=== PATIENT | male | born 1960 | race Caucasian/White ===

== ENCOUNTER 2024-09-17 17:11 | Emergency (ER) | payer MEDICARE, MEDICAID, SELFPAY ==
[2024-09-17] VITALS (11 sets, daily range): BP systolic 159–247; BP diastolic 96–156; PULSE 79–98; RESP 18–20; TEMP 36.6–37.2; O2SAT 94–98; BMI 33.9
--- NOTE | 2024-09-17 17:24 | EKG_ITS ---
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
--- NOTE | 2024-09-17 17:24 | PC.NURSE ---
PT CAME IN WITH C/O ABD PAIN SINCE LAST NIGHT. PT ALSO NOTED TO HAVE HIGH BP. PER PT HE DID NOT TAKE HIS MEDICATIONS TODAY OR LAST NIGHT DUE TO HIS ABD PAIN. PT DENIES CONSTIPATION. NO FEVER NOTE. PT PLACED ON CC MONITOR
--- NOTE | 2024-09-17 17:40 | EDNOTE_ITS ---
ED Abdominal Pain RME/HPI General Chief Complaint: Abdominal Pain Stated complaint: ABDOMINAL PAIN Time seen by provider: 09/17/24 17:29 Arrival date/time: 09/17/24 17:11 RME / HPI RME / HPI narrative: 64-year-old male patient with significant history of hypertension, came in for evaluation regarding epigastric pain. Onset of symptoms since yesterday as epigastric pain, described as crampy, severity moderate. Denies any vomiting but complain of nausea. Denies any fever. Patient told me that for the last 24 hours he did not take his blood pressure medication due to nausea and abdominal pain. Denies any chest pain. Denies any other complaints no diarrhea no constipation last bowel movement today. Patient admits to using meth amphetamine on a regular basis, minimal twice a week according to him. But last dose was yesterday. Related Data Previous Rx's ?Medication ?Instructions ?Recorded albuterol sulfate 90 mcg/actuation 2 inh inhalation Q6 H PRN shortness 03/22/24 breath activated powder inhaler of breath or wheezing #1 ea carvedilol 6.25 mg tablet 6.25 mg PO BID #60 tabs 03/06 01/26 dapagliflozin propanediol 10 mg 10 mg PO QDAY #30 tabs 03/22/24 tablet (Farxiga) guaifenesin 1,200 mg tablet, 1,200 mg PO BID #6 tabs 0 03/22/24 extended release 12 hr (Mucus Relief ER) methylprednisolone 4 mg tablets in 4 mg PO QAM #21 tab s 03/22/24 a dose pack (Medrol (Scott)) dicyclomine 20 mg tablet 20 mg PO BID PRN abdominal p ain 09/17/24 #20 tabs metoclopramide HCl 10 mg tablet 10 mg PO Q6H PRN nause a and 09/17/24 (Reglan) vomiting #20 tabs pantoprazole 40 mg tablet,delayed 40 mg PO QDAY #20 ta bs 09/17/24 release (Protonix) Allergies Allergy/AdvReac Type Severity Reaction Status Date / Time No Known Allergies Allergy Verified 12/24/23 18:32 Review of Systems Review of Systems Narrative Review of Systems: Review of system reviewed and within normal limits except mentioned in HPI ED Exam Narrative Physical exam: VITAL SIGNS: Reviewed. GENERAL APPEARANCE: Alert and interactive, follows commands, no acute distress, HEAD AND FACE: Non-traumatic. ENT: PERRL, pink conjunctivitis, eyelid no trauma, Mucous membrane moist. NECK: Supple, nontender, no nuchal rigidity. CHEST: No tenderness, no crepitus, no paradoxical movement, no retractions. LUNGS: Clear, well ventilated, symmetric, no rales, no wheezing, no ronchi, no stridor, good breath sounds bilaterally. HEART: Regular rate, regular rhythm, no murmur, no gallops. ABDOMEN: Soft, positive bowel sounds, nondistended, no guarding, , epigastric tenderness GENITAL: Deferred. NEUROLOGICAL: Gross motor function intact sensory function intact, Appropriate for age. MUSCULOSKELETAL: low back nontender, full range of motion. EXTREMITIES: Nontender, full range of motion. SKIN: Color pink, dry, no rash, no lacerations, no abrasions, no contusions. LYMPHATICS: Deferred. Course Quality Measures none Orders Category Date Time Status EKG (ED ONLY) *Do not use* NOW Care 09/17/24 17:24 Completed EKG (ED ONLY) *Do not use* NOW Care 09/17/24 17:46 Completed Insert IV NOW Care 09/17/24 17:24 Active EKG (ED Only) Stat Exams 09/17/24 17:24 Draft EKG (ED Only) Stat Exams 09/17/24 17:46 Ordered US gall bladder Stat Exams 09/17/24 17:46 Completed CBC Stat Lab 09/17/24 17:25 Completed Comprehensive Metabolic Panel Stat Lab 09/17/24 17:25 Completed Drug Screen,Urine Stat Lab 09/17/24 20:47 Ordered Lipase Stat Lab 09/17/24 17:25 Completed Partial Thromboplastin Time Stat Lab 09/17/24 17:25 Completed Prothrombin Time with INR Stat Lab 09/17/24 17:25 Completed Troponin I Stat Lab 09/17/24 17:25 Completed Troponin I Stat Lab 09/17/24 22:06 Completed UA, C/S IF [Urinalysis, C/S if Indicated] Stat Lab 09/17/24 20:00 Completed Ketorolac Inj [Toradol Inj] Med 09/17/24 17:46 Discontinued 30 mg IVP X1 ONE Metoclopramide Inj [Reglan Inj] Med 09/17/24 17:46 Discontinued 10 mg IVP X1 ONE cloNIDine HCL [Catapres] Med 09/17/24 17:46 Discontinued 0.2 mg PO X1 ONE Vital Signs Vital signs: Vital Signs Temperature 98.3 F 09/17/24 17:22 Pulse Rate 79 09/17/24 17:22 Respiratory Rate 18 09/17/24 17:22 Blood Pressure 247/156 H 09/17/24 17:22 Pulse Oximetry (%) 96 09/17/24 17:22 Oxygen Delivery Method Room Air 09/17/24 17:22 Abdominal Pain [facility] Narrative [facility] Narrative:: 64-year-old male patient with significant history of hypertension, came in for evaluation regarding epigastric pain. Onset of symptoms since yesterday as epigastric pain, described as crampy, severity moderate. Denies any vomiting but complain of nausea. Denies any fever. Patient told me that for the last 24 hours he did not take his blood pressure medication due to nausea and abdominal pain. Denies any chest pain. Denies any other complaints no diarrhea no constipation last bowel movement today. Patient admits to using meth amphetamine on a regular basis, minimal twice a week according to him. But last dose was yesterday. EKG as interpreted by me shows sinus rhythm, ventricular rate of 92 bpm, no ST segment elevation depression noted. Patient's troponin was noted initially at 0.8, after 3 hours went down to 0.7. Patient is also having elevated troponin in the past. Patient is denying any chest pain. Probably related to the methamphetamine abuse. Ultrasound of the gallbladder, came back unremarkable. The rest of the labs unremarkable Patient was given clonidine and Toradol IV. Patient was also given Reglan. Prior to discharge patient was eating sandwich in the ED and having no pain. Was advised to stop abusing methamphetamine. Patient data External records reviewed:: None Clinical information provided by:: patient Social determinants that could affect healthcare access:: substance use Patient has the following chronic illnesses:: Hypertension How is presenting disease/condition affected by chronic disease/condition?: exacerbated by Evaluation data The following diagnostics were reviewed and interpreted by me:: lab results, radiology exam(s) and EKG tracing(s) Lab and/or radiology exams considered but not ordered:: None Interpretation Summary: See results in MDM Medications / Prescriptions Medications or Prescriptions considered but not ordered:: None Medication administrations:: Medication Administration History Discontinued Medications Clonidine (Clonidine Hcl 0.1 Mg Tablet) 0.2 mg PO X1 ONE Stop: 09/17/24 17:47 Last Admin: 09/17/24 17:59 Dose: 0.2 mg Documented By: DO Ketorolac Tromethamine (Ketorolac Inj 30 Mg/Ml Vial) 30 mg IVP X1 ONE Stop: 09/17/24 17:47 Last Admin: 09/17/24 17:58 Dose: 30 mg Documented By: DO Metoclopramide HCl (Metoclopramide Inj 5 Mg/Ml Vial 2 Ml) 10 mg IVP X1 ONE; Protocol Stop: 09/17/24 17:47 Last Admin: 09/17/24 17:58 Dose: 10 mg Documented By: DO Reglan, Toradol and clonidine Consultations Consultation(s) initiated? (list below): No Diagnosis Differential diagnosis abdominal pain: abdominal pain, constipation, pancreatitis and other (Elevated troponin, methamphetamine abuse) Most likely diagnosis given after review of the tests above:: Abdominal pain Admission Indicated Admission indicated?: not indicated Admission Request Was there a request for admission?: No Disposition Plan Disposition Plan: Discharge Discharge Attestation Discharge Attestation: The patient was given an opportunity to ask questions and understood the discharge instructions. Discharge instructions specifically effects, indications for sooner follow up or return to the emergency department, and the expected course of current diagnosis. Patient condition: Stable Discharge Plan Plan Patient Disposition: HOME (Self Care) Disposition Comment: Stable Prescriptions/Referrals Prescriptions/Med Rec: New pantoprazole [Protonix] 40 mg tablet,delayed release (DR/EC) 40 mg PO QDAY Qty: 20 0RF dicyclomine 20 mg tablet 20 mg PO BID PRN (Reason: abdominal pain) Qty: 20 0RF metoclopramide HCl [Reglan] 10 mg tablet 10 mg PO Q6H PRN (Reason: nausea and vomiting) Qty: 20 0RF No Action guaifenesin [Mucus Relief ER] 1,200 mg tablet extended release 12hr 1,200 mg PO BID Qty: 6 0RF methylprednisolone [Medrol (Scott)] 4 mg tablets,dose pack 4 mg PO QAM Qty: 21 0RF albuterol sulfate 90 mcg/actuation aerosol powdr breath activated 2 inh inhalation Q6H PRN (Reason: shortness of breath or wheezing) Qty: 1 0RF carvedilol 6.25 mg tablet 6.25 mg PO BID Qty: 60 0RF Rx Instructions: must administer with a meal/food dapagliflozin propanediol [Farxiga] 10 mg tablet 10 mg PO QDAY Qty: 30 0RF Referrals: Sagar Melgoza MD [Primary Care Provider] - In 1 week Problem List Clinical Impression: Abdominal pain Patient/Caregiver Discharge Instructions Discharge Activity: activity as tolerated Education Materials: Abdominal Pain Additional Instructions: Thank you for the opportunity for serving you today. You are stable for discharged . You are advised to: Follow-up with your PCP in 1 to 2 days Return to ED for worsening of symptoms Increase oral fluids Take medication as prescribed Please stop abusing meth Print Language: Luxembourgish Stand Alone Forms: Tierney Award Info., Patient Portal Info Letter PA/PROCUREMENT CLERK Supervising Physician CHHAYA/LEONOR Supervising Physician: MD Mike
--- NOTE | 2024-09-17 17:46 | XR_ITS ---
Examination: Abdomen sonogram, Limited Date and time of exam: September 20, 2024 1854 hrs. Indications: Epigastric pain beginning 2 days ago Technique: Real-time reed scale transabdominal sonographic images of the upper abdomen obtained. Findings: Negative for gallstones Gallbladder wall 0.35 cm no edema Common bile duct 0.4 cm Pancreatic head 3.4 cm borders are ill-defined Liver 12.3 cm Normal hepatopedal portal venous flow Patent IVC Impression: Negative for cholelithiasis, negative for cholecystitis If pancreatitis is a clinical consideration, suggest CT abdomen pelvis post intravenous contrast follow-up
[2024-09-17] MEDS: METOCLOPRAMIDE INJ 5 MG/ML VIAL 2 ML 10 MG IVP (17:58)
[2024-09-17] MEDS: KETOROLAC INJ 30 MG/ML VIAL IVP (17:58)
[2024-09-17] MEDS: cloNIDine HCL 0.1 MG TABLET 0.2 MG PO (17:59)
[2024-09-17 18:20] LABS: Basophils # (Auto) 0.1 Thou/mm3 (0.0-0.2); Basophils % (Auto) 0 % (0-2.5); Eosinophils # (Auto) 0.1 Thou/mm3 (0.0-0.5); Eosinophils % (Auto) 1 % (0-10); Hematocrit 52.7 % (41.0-53.0); Hemoglobin 18.2 g/dL (13.5-16.0); Immature Granulocytes % (Auto) 0 % (0-0); Immature Granulocytes Auto 0.03 Thou/mm3 (0.00-0.00); Lymphocytes # (Auto) 1.8 Thou/mm3 (1.0-4.8); Lymphocytes % (Auto) 16 % (10-50); Mean Corpuscular HGB Conc 34.5 g/dl (31.0-37.0); Mean Corpuscular Hemoglobin 30.8 pg (25.0-35.0); Mean Corpuscular Volume 89 fL (80-100); Monocytes # (Auto) 0.9 Thou/mm3 (0.0-0.8); Monocytes % (Auto) 7 % (0-12); Neutrophils # (Auto) 8.7 Thou/mm3 (1.8-7.7); Neutrophils % (Auto) 75 % (37-80); Nucleated Red Blood Cell % 0 /100 WBC (0); Platelet Count 160 Thou/mm3 (140-440); RDW Standard Deviation 38.6 fL (35.1-43.9); Red Blood Count 5.91 Miln/mm3 (4.50-5.90); White Blood Count 11.6 Thou/mm3 (3.8-10.6)
[2024-09-17 18:32] LABS: Partial Thromboplastin Time 29.9 Seconds (22.0-36.0); Prothrombin Time 11.3 Seconds (9.0-12.2)
[2024-09-17 18:39] LABS: Alanine Aminotransferase 26 U/L (10-49); Albumin, Serum 5.3 gm/dL (3.4-4.8); Albumin/Globulin Ratio 1.2 (1.2-2.2); Alkaline Phosphatase 136 U/L (46-116); Anion Gap 10 (7-16); Aspartate Amino Transferase 34 U/L (0-34); BUN/Creatinine Ratio 11 Ratio (12-20); Blood Urea Nitrogen 13 mg/dL (9-23); Calcium 10.5 mg/dL (8.3-10.6); Calcium (Corrected) 10.5 mg/dL (8.5-10.1); Carbon Dioxide 27.6 mMol/L (20.0-31.0); Chloride 98 mMol/L (98-107); Creatinine (Component) 1.2 mg/dL (0.6-1.3); Estimated Creatinine Clearance 66.3 mL/min (>60); Globulin 4.3 gm/dL (2.3-3.5); Glucose 115 mg/dL (74-106); Lipase 34 U/L (12-53); Osmolality,Calculated 273 (275-295); Potassium 3.8 mMol/L (3.4-5.1); Sodium 136 mMol/L (136-145); Total Protein 9.6 gm/dL (5.7-8.2); eGFR > 60 See Note
--- NOTE | 2024-09-17 19:49 | PC.NURSE ---
Family called given update. Niece mentioned that he had c/p last nite. Lucas INTERACTIVE PRODUCER informed, will add Trop level.
[2024-09-17 19:53] LABS: Collection Type, Urine Clean Catch
[2024-09-17 20:18] LABS: Bilirubin,Urine Negative (Negative); Blood,Urine Negative (Negative); Clarity,Urine Clear (Clear/Hazy); Color,Urine Lt-Yellow (Lt Yel-Yel); Culture Indicated,Urine Not Indicated; Glucose, Urine Trace (Negative); Ketones,Urine Trace (Negative); Leukocyte Esterase,Urine Negative (Negative); Nitrite,Urine Negative (Negative); PH,Urine 6.5 (5.0-7.0); Protein,Urine 1+ (Neg - Trace); RBC,Urine 2 /hpf (0-3); Specific Gravity,Urine 1.011 (1.001-1.035); Squamous Epithelial Cell,Urine 1 /hpf (0-5); Urobilinogen,Urine Negative mg/dL (0.0-1.0); WBC,Urine < 1 /hpf (0-5)
[2024-09-17 20:25] LABS: Troponin I 0.869 ng/mL (0.0-0.045)
--- NOTE | 2024-09-17 21:01 | PRELIM_ITS ---
Right upper quadrant abdominal ultrasound. September 17, 2024 at 1854 hours Clinical history: Epigastric pain. Technique: Grayscale and color flow images of the right upper quadrant are provided. Hepatic and portal veins were also imaged with color flow images. Comparison: No prior study is available for comparison. Findings: The evaluation is limited due to overlying bowel gas and body habitus. The liver measures 12.3 cm and is mildly heterogeneous in echotexture. The left lobe of the liver is limited by bowel gas artifact. No intrahepatic biliary ductal dilatation. The portal vein is patent and demonstrates hepatopetal flow. The gallbladder wall appears mildly thickened measuring 3.5 mm. No gallbladder calculus or pericholecystic fluid is demonstrated. Sonographic Gore sign is negative as per the technologist's note. The common bile duct is normal in caliber at 3.5 mm. The pancreas is hyperechoic with ill-defined pancreatic borders. Impression: Limited evaluation as described. 1. Mildly thickened gallbladder wall without evidence of gallstones or pericholecystic fluid. In the appropriate clinical setting, acute acalculous cholecystitis cannot be excluded. Suggest follow-up with HIDA scan, if clinically indicated. 2. Mildly heterogeneous echotexture of liver, likely related to hepatic parenchymal disease. 3. Hyperechoic pancreas with ill-defined pancreatic borders, nonspecific but acute pancreatitis cannot be excluded appropriately rectal settings. Recommend clinical correlation with lipase and further evaluation with CT. 4. No evidence of biliary obstruction. Report Electronically Signed By: Luis Manuel Lin 09/17/2024 9:01:28 PM [EST]
[2024-09-17 22:42] LABS: Troponin I 0.702 ng/mL (0.0-0.045)
== END 2024-09-17 23:53 | disposition home or self-care (01) ==
PROVIDERS: Nurse Practitioner Family; Emergency Provider Emergency Medicine; PCP Family Medicine
DX: R10.13 Epigastric pain (principal); T46.5X6A Underdosing of other antihypertensive drugs, initial encounter; I10 Essential (primary) hypertension
CPT/HCPCS: 36415; 76705; 80053; 80307; 81001; 83690; 84484; 85025; 85610; 85730; 93005; 96374; 96375; 99284; J1885; J2765; A9270

== ENCOUNTER 2025-04-19 15:22 | Emergency (ER) | payer MEDICARE, MEDICAID, SELFPAY ==
[2025-04-19 15:30] VITALS: PULSE 86; RESP 16; O2SAT 98
[2025-04-19 15:56] VITALS: BP 189/120; BP 206/111; PULSE 65; RESP 20; TEMP 36.6; O2SAT 99
--- NOTE | 2025-04-19 16:04 | XR_ITS ---
EXAMINATION: CT abdomen pelvis without intravenous contrast 2D sagittal coronal reconstructions 3D reconstructions Date and time: April 19, 2025, 1615 hours INDICATIONS: Right inguinal pain groin pain onset today. CTDI: 9.09 DLP: 578 TECHNIQUE AND FINDINGS: 3.[address] axial images obtained abdomen pelvis 2D sagittal coronal reconstructions 3D reconstructions Low-dose protocols, adjustment MA KV according to patient size FINDINGS: 18 mm nodule lobular margins right lower lobe No visualized liver or splenic lesion No gallstones No pancreatic or adrenal mass No renal or ureteral calculi, no hydronephrosis Aorta normal size No bowel obstruction Normal appendix No prostatomegaly Urinary bladder intact Tiny fat-containing right inguinal hernia Moderate osteopenia IMPRESSION: 18 mm pulmonary nodule right lower lobe, please see the CT chest report 03/21/2024 No renal or ureteral calculi, no hydronephrosis Normal appendix No prostatomegaly Tiny fat-containing right inguinal hernia
--- NOTE | 2025-04-19 16:06 | PD.EDRME ---
Rapid Medical Screening Exam RME Arrival date/time: 04/19/25 15:22 64-year-old male presents to the emergency department today for complaints of abdominal pain and right inguinal pain Chief Complaint: Abdominal Pain Vital signs: Vital Signs Temperature 97.8 F 04/19/25 15:56 Pulse Rate 65 04/19/25 15:56 Respiratory Rate 20 04/19/25 15:56 Blood Pressure 206/111 H 04/19/25 15:56 Pulse Oximetry (%) 99 04/19/25 15:56 Oxygen Delivery Method Room Air 04/19/25 15:56
[2025-04-19 16:16] VITALS: BP 206/111; PULSE 65
[2025-04-19] MEDS: HYDROcodone/APAP 5/325 TABLET 1 TAB PO (16:16)
--- NOTE | 2025-04-19 16:18 | EDNOTE_ITS ---
ED General RME/HPI General Chief complaint: Abdominal Pain Stated complaint: RLQ ABD PAIN Time Seen by Provider: 04/19/25 16:18 Arrival date/time: 04/19/25 15:22 RME / HPI RME / HPI narrative: Mayank is a 64 y/o male with PMHx hypertension, psoriasis, active smoker and substance abuse (meth) who comes in for evaluation of RLQ pain, radiates to the flank and lower back, onset about a month ago, improved with OTC tylenol, rated 8/10 pain, with associated nausea. Patient reports that he has had similar symptoms to these before. He says that he was recently in with [facility] and he was worked up for similar, pain, however they did not find anything and he was discharged. He says that his temperature has been running around 97 Fahrenheit. Denies any chest pain, shortness of breath, numbness, tingling, headache. He does not have a compliance representative at this time. He has a PCP, however does not know who it is. He says he currently smokes about 10 cigarettes a day. He has never had an endoscopy or colonoscopy before. Endorses about 8 pounds of weight loss in the past 2 months. He denies any blood in his stool, coughing up blood, or throwing up blood. He says that he rarely drinks. He avoids using ibuprofen, and only uses Tylenol. He has no history of kidney stones, however family history of kidney stones. Denies a history of BPH, however endorses some burning when he pees. Has bowel movements reguarly, last one was yesterday. He has no other complaints at this time. Related Data Previous Rx's ?Medication ?Instructions ?Recorded albuterol sulfate 90 mcg/actuation 2 inh inhalation Q6 H PRN shortness 03/22/24 breath activated powder inhaler of breath or wheezing #1 ea carvedilol 6.25 mg tablet 6.25 mg PO BID #60 tabs 03/06 01/26 dapagliflozin propanediol 10 mg 10 mg PO QDAY #30 tabs 03/22/24 tablet (Farxiga) guaifenesin 1,200 mg tablet, 1,200 mg PO BID #6 tabs 0 03/22/24 extended release 12 hr (Mucus Relief ER) methylprednisolone 4 mg tablets in 4 mg PO QAM #21 tab s 03/22/24 a dose pack (Medrol (Scott)) dicyclomine 20 mg tablet 20 mg PO BID PRN abdominal p ain 09/17/24 #20 tabs metoclopramide HCl 10 mg tablet 10 mg PO Q6H PRN nause a and 09/17/24 (Reglan) vomiting #20 tabs pantoprazole 40 mg tablet,delayed 40 mg PO QDAY #20 ta bs 09/17/24 release (Protonix) pantoprazole 40 mg tablet,delayed 40 mg PO QDAY 2 week s #14 tabs 04/19/25 release (Protonix) Allergies Allergy/AdvReac Type Severity Reaction Status Date / Time No Known Allergies Allergy Verified 04/19/25 15:33 Review of Systems Review of Systems Narrative Review of Systems: 12 point ROS reviewed and is otherwise negative unless stated directly in the HPI ED Exam Narrative Physical exam: General: AAOx3, NAD, in wheel chair, has tattoos HEENT: Moist mucous membranes, conjunctiva clear, EOMI, PERRLA, Cardiovascular: S1, S2, radial pulses +2 bilat, RRR Pulmonary: CTAB bilat no cough, no wheezing GI: A bit distended, hypoactive bowel sounds, slight tenderness to RLQ : No CVA tenderness Extremities: No presence of trace or pitting edema in lower extremities bilaterally, dorsalis pedis pulses +2 bilaterally Neuro: AAOx3, no focal motor or sensory deficits in the UE or LE bilat Psych: Good judgement, thought and behavior Course Quality Measures none Orders Category Date Time Status Miscellaneous Nursing Order NOW Care 04/19/25 17:[address] abdomen pelvis wo con Stat Exams 04/19/25 16:04 Completed US gall bladder Stat Exams 04/19/25 17:11 Taken CBC Stat Lab 04/19/25 16:24 Completed Comprehensive Metabolic Panel Stat Lab 04/19/25 16:24 Completed Lipase Stat Lab 04/19/25 16:24 Completed UA, C/S IF [Urinalysis, C/S if Indicated] Stat Lab 04/19/25 16:04 Ordered HYDROcodone*/APAP 5/325 [[place] 5/325] Med 04/19/25 16:04 Discontinued 1 tab PO X1 ONE Lidocaine 2% Viscous [Xylocaine 2% Viscous] Med 04/19/25 17:12 Discontinued 15 ml PO X1 ONE Ondansetron Odt [Zofran Odt] Med 04/19/25 17:17 Discontinued 4 mg PO X1 ONE Pantoprazole [Protonix] Med 04/19/25 17:12 Discontinued 40 mg PO X1 ONE cloNIDine HCL [Catapres] Med 04/19/25 16:04 Discontinued 0.1 mg PO X1 ONE mg Hyd/Al Hyd/Sherman Susp [Maalox Susp] Med 04/19/25 17:12 Discontinued 30 ml PO X1 ONE Vital Signs Vital signs: Vital Signs Temperature 97.8 F 04/19/25 15:56 Pulse Rate 65 04/19/25 15:56 Respiratory Rate 20 04/19/25 15:56 Blood Pressure 206/111 H 04/19/25 15:56 Pulse Oximetry (%) 99 04/19/25 15:56 Oxygen Delivery Method Room Air 04/19/25 15:56 Discharge Plan Plan Patient Disposition: HOME (Self Care) Prescriptions/Referrals Prescriptions/Med Rec: New pantoprazole [Protonix] 40 mg tablet,delayed release (DR/EC) 40 mg PO QDAY 14 Days Qty: 14 0RF Rx Instructions: Take one tablet by mouth before breakfast No Action pantoprazole [Protonix] 40 mg tablet,delayed release (DR/EC) 40 mg PO QDAY Qty: 20 0RF dicyclomine 20 mg tablet 20 mg PO BID PRN (Reason: abdominal pain) Qty: 20 0RF metoclopramide HCl [Reglan] 10 mg tablet 10 mg PO Q6H PRN (Reason: nausea and vomiting) Qty: 20 0RF guaifenesin [Mucus Relief ER] 1,200 mg tablet extended release 12hr 1,200 mg PO BID Qty: 6 0RF methylprednisolone [Medrol (Scott)] 4 mg tablets,dose pack 4 mg PO QAM Qty: 21 0RF albuterol sulfate 90 mcg/actuation aerosol powdr breath activated 2 inh inhalation Q6H PRN (Reason: shortness of breath or wheezing) Qty: 1 0RF carvedilol 6.25 mg tablet 6.25 mg PO BID Qty: 60 0RF Rx Instructions: must administer with a meal/food dapagliflozin propanediol [Farxiga] 10 mg tablet 10 mg PO QDAY Qty: 30 0RF Referrals: No Primary/Family,Physician [Primary Care Provider] - In 1 week Problem List Clinical Impression: Gastritis Patient/Caregiver Discharge Instructions Discharge Activity: activity as tolerated Education Materials: ED Gastritis (Adult) Additional Instructions: Discharge instructions Follow-up with your PCP within 1 week We are prescribing Protonix, take as prescribed Avoid smoking at all costs as this can be a culprit of your abdominal pain We did not see inflammation in your appendix, gallbladder or any kidney stones, your pain is likely related to long standing gastritis. Speak with your PCP in regards to this and consider being referred to a Stomach and Liver doctor (GI doctor) Return to ED if your symptoms worsen or return Print Language: Citizen Of [place] Stand Alone Forms: Tierney Award Info., Patient Portal Info Letter MDM Narrative MDM hospital course (for use when minimal MDM required): 1722: CT abd/pelvis shows no renal calculi, normal appendix, normal prostate. Will give patient GI cocktail and order US gallbladder as there was previous sludge in previous US and there was some tenderness in RUQ. Pt was given clonidine earlier for SBP 200s. 1800: Gallbladder US report notes say no sludge in gallbladder or stones. Pt medically cleared for discharge. Pt needs to follow up with PCP in regards to abdominal pain including gastritis. Medication Administration(s) Medication Administration History Discontinued Medications Hydrocodone Bitart/Acetaminophen (Hydrocodone/Apap 5/325 Tablet) 1 tab PO X1 ONE Stop: 04/19/25 16:05 Last Admin: 04/19/25 16:16 Dose: 1 tab Documented By: EF Al Hydrox/Mg Hydrox/Simethicone (Mg Hyd/Al Hyd/Sherman (Maalox Reg) Susp 30 Ml Udc) 30 ml PO X1 ONE Stop: 04/19/25 17:13 Clonidine (Clonidine Hcl 0.1 Mg Tablet) 0.1 mg PO X1 ONE Stop: 04/19/25 16:05 Last Admin: 04/19/25 16:16 Dose: 0.1 mg Documented By: EF Lidocaine HCl (Lidocaine Viscous 2% 15 Ml Udc) 15 ml PO X1 ONE Stop: 04/19/25 17:13 Ondansetron HCl (Ondansetron Odt 4 Mg Tabrap) 4 mg PO X1 ONE; Protocol Stop: 04/19/25 17:18 Pantoprazole Sodium (Pantoprazole 40 Mg Tablet) 40 mg PO X1 ONE Stop: 04/19/25 17:13
[2025-04-19 16:34] LABS: Basophils # (Auto) 0.1 Thou/mm3 (0.0-0.2); Basophils % (Auto) 1 % (0-2.5); Eosinophils # (Auto) 0.4 Thou/mm3 (0.0-0.5); Eosinophils % (Auto) 4 % (0-10); Hematocrit 44.0 % (41.0-53.0); Hemoglobin 15.2 g/dL (13.5-16.0); Immature Granulocytes Auto 0.03 Thou/mm3 (0.00-0.00); Lymphocytes # (Auto) 2.4 Thou/mm3 (1.0-4.8); Lymphocytes % (Auto) 28 % (10-50); Mean Corpuscular HGB Conc 34.5 g/dl (31.0-37.0); Mean Corpuscular Hemoglobin 31.3 pg (25.0-35.0); Mean Corpuscular Volume 91 fL (80-100); Monocytes # (Auto) 0.7 Thou/mm3 (0.0-0.8); Monocytes % (Auto) 8 % (0-12); Neutrophils # (Auto) 5.1 Thou/mm3 (1.8-7.7); Neutrophils % (Auto) 59 % (37-80); Nucleated Red Blood Cell # 0.00 Thou/mm3 (0.00-0.00); Nucleated Red Blood Cell % 0 /100 WBC (0); Platelet Count 222 Thou/mm3 (140-440); RDW Standard Deviation 39.5 fL (35.1-43.9); Red Blood Count 4.86 Miln/mm3 (4.50-5.90); White Blood Count 8.7 Thou/mm3 (3.8-10.6)
[2025-04-19 16:59] LABS: Alanine Aminotransferase 16 U/L (10-49); Albumin, Serum 4.4 gm/dL (3.4-4.8); Albumin/Globulin Ratio 1.5 (1.2-2.2); Alkaline Phosphatase 127 U/L (46-116); Anion Gap 9 (7-16); Aspartate Amino Transferase 24 U/L (0-34); BUN/Creatinine Ratio 10 Ratio (12-20); Bilirubin,Total 0.7 mg/dL (0.3-1.2); Blood Urea Nitrogen 12 mg/dL (9-23); Calcium 9.2 mg/dL (8.3-10.6); Calcium (Corrected) 9.2 mg/dL (8.5-10.1); Carbon Dioxide 27.0 mMol/L (20.0-31.0); Chloride 103 mMol/L (98-107); Creatinine (Component) 1.2 mg/dL (0.6-1.3); Globulin 3.0 gm/dL (2.3-3.5); Glucose 113 mg/dL (74-106); Lipase 24 U/L (12-53); Osmolality,Calculated 278 (275-295); Potassium 4.0 mMol/L (3.4-5.1); Sodium 139 mMol/L (136-145); Total Protein 7.4 gm/dL (5.7-8.2); eGFR > 60 See Note
--- NOTE | 2025-04-19 17:11 | XR_ITS ---
EXAMINATION: Abdomen sonogram limited TECHNIQUE: Grayscale sonographic images abdomen Date and time: April 19, 2025, 1727 hours INDICATIONS: Right upper abdominal pain onset today. FINDINGS: Normal gallbladder. Normal common bile duct 0.4 cm Pancreatic at 3.0 cm Liver 10.3 cm fatty infiltration Normal hepatopetal portal venous flow Patent IVC IMPRESSION: Normal gallbladder Normal common bile duct
[2025-04-19 18:09] VITALS: BP 216/120; PULSE 77; RESP 18; TEMP 36.7; O2SAT 96
[2025-04-19 18:24] VITALS: BP 216/120; PULSE 77
[2025-04-19] MEDS: MG HYD/AL HYD/SIME (Maalox Reg) SUSP 30 ML UDC PO (18:24)
[2025-04-19] MEDS: ONDANSETRON ODT 4 MG TABRAP PO (18:24)
[2025-04-19] MEDS: PANTOPRAZOLE 40 MG TABLET PO (18:24)
[2025-04-19] MEDS: LIDOCAINE VISCOUS 2% 15 ML UDC PO (18:24)
[2025-04-19 18:34] VITALS: BP 174/105; PULSE 71; RESP 18; O2SAT 98
== END 2025-04-19 18:35 | disposition home or self-care (01) ==
PROVIDERS: Nurse Practitioner Primary Care
DX: K29.70 Gastritis, unspecified, without bleeding (principal); F17.210 Nicotine dependence, cigarettes, uncomplicated; I10 Essential (primary) hypertension; Z79.52 Long term (current) use of systemic steroids
CPT/HCPCS: 36415; 74176; 76705; 80053; 81001; 83690; 85025; 99283; J3490; Q0162; A9270

== ENCOUNTER 2025-04-24 10:58 | Emergency (ER) | payer MEDICARE, MEDICAID, SELFPAY ==
--- NOTE | 2025-04-24 11:38 | EKG_ITS ---
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
--- NOTE | 2025-04-24 11:38 | XR_ITS ---
EXAMINATION: PA chest single view TECHNIQUE: 1. Upright PA chest single view Date and time: April 24, 2025, 1142 hours, comparison March 20, 2024 INDICATIONS: History pulmonary nodule FINDINGS: Stable 28 mm pulmonary nodule right lower lung zone compared with 03/20/2024 Normal heart size No interval pneumonia or pulmonary edema IMPRESSION: Consider repeat CT chest follow-up to compare with the 03/21/2024 exam
--- NOTE | 2025-04-24 11:38 | XR_ITS ---
Examination: CT abdomen with intravenous contrast CT pelvis with intravenous contrast 2-D coronal reconstructions 2-D sagittal reconstructions Date and time of exam: April 24, 2025, 1427 hours INDICATIONS: Right side abdominal pain beginning 3 days ago COMPARISON: April 19, 2025. CTDI: vol (mGy) 9.09 DLP: (mGycm) 541 Technique: Multiple axial sections of the abdomen and pelvis have been obtained. 64 slice high-resolution scanner used. 3 mm axial sections have been obtained, post intravenous injection of 30 cc Isovue-300 2-D sagittal, coronal reconstructions obtained. Low dose protocols were performed. One or more of the following dose reduction techniques were used; automated exposure control, adjustment of the mA and/or KV according to patient size, use of iterative reconstruction technique. Findings: No focal liver or splenic lesions No gallstones No pancreatic or adrenal mass No renal or ureteral calculi, no hydronephrosis Aorta is calcified but normal in size Normal appendix Colonic diverticulosis, no diverticulitis Urinary bladder wall is thickened up to 10 mm Transverse prostate dimension 33 mm IMPRESSION: No renal or ureteral calculi, no hydronephrosis No CT findings of appendicitis Colonic diverticulosis, no diverticulitis
--- NOTE | 2025-04-24 11:39 | PD.EDRME ---
Rapid Medical Screening Exam RME Arrival date/time: 04/24/25 10:58 64-year-old male with a history of hypertension, COPD, presents to the emergency room with a chief complaint of dizziness, lightheadedness, right lower quadrant abdominal pain and tenderness, weakness and fatigue x 1 week. I have greeted and performed a focused initial assessment of this patient. A comprehensive ED assessment and evaluation of the patient, analysis of all test results, and completion of the medical decision making process will be conducted by additional ED providers. Chief Complaint: Abdominal Pain Time Seen by Provider: 04/24/25 11:28 Vital signs reviewed by provider: Yes
[2025-04-24 11:41] VITALS: BP 118/65; PULSE 67; RESP 18; TEMP 37; O2SAT 99; BMI 32.1
[2025-04-24 12:49] LABS: Basophils # (Auto) 0.1 Thou/mm3 (0.0-0.2); Basophils % (Auto) 1 % (0-2.5); Eosinophils # (Auto) 0.7 Thou/mm3 (0.0-0.5); Eosinophils % (Auto) 9 % (0-10); Hematocrit 45.1 % (41.0-53.0); Hemoglobin 15.8 g/dL (13.5-16.0); Immature Granulocytes Auto 0.01 Thou/mm3 (0.00-0.00); Lymphocytes # (Auto) 2.2 Thou/mm3 (1.0-4.8); Lymphocytes % (Auto) 27 % (10-50); Mean Corpuscular HGB Conc 35.0 g/dl (31.0-37.0); Mean Corpuscular Hemoglobin 32.0 pg (25.0-35.0); Mean Corpuscular Volume 91 fL (80-100); Monocytes # (Auto) 0.7 Thou/mm3 (0.0-0.8); Monocytes % (Auto) 9 % (0-12); Neutrophils # (Auto) 4.4 Thou/mm3 (1.8-7.7); Neutrophils % (Auto) 54 % (37-80); Nucleated Red Blood Cell # 0.00 Thou/mm3 (0.00-0.00); Nucleated Red Blood Cell % 0 /100 WBC (0); Platelet Count 199 Thou/mm3 (140-440); RDW Standard Deviation 40.5 fL (35.1-43.9); Red Blood Count 4.94 Miln/mm3 (4.50-5.90); White Blood Count 8.1 Thou/mm3 (3.8-10.6)
[2025-04-24 13:07] LABS: Alanine Aminotransferase 14 U/L (10-49); Albumin, Serum 4.7 gm/dL (3.4-4.8); Albumin/Globulin Ratio 1.6 (1.2-2.2); Alkaline Phosphatase 119 U/L (46-116); Anion Gap 10 (7-16); Aspartate Amino Transferase 25 U/L (0-34); BUN/Creatinine Ratio 11 Ratio (12-20); Bilirubin,Total 0.6 mg/dL (0.3-1.2); Blood Urea Nitrogen 16 mg/dL (9-23); Calcium 9.6 mg/dL (8.3-10.6); Calcium (Corrected) 9.6 mg/dL (8.5-10.1); Carbon Dioxide 27.3 mMol/L (20.0-31.0); Chloride 103 mMol/L (98-107); Creatinine (Component) 1.4 mg/dL (0.6-1.3); Estimated Creatinine Clearance 55.3 mL/min (>60); Globulin 3.0 gm/dL (2.3-3.5); Glucose 106 mg/dL (74-106); INR 1.0 (0.9-1.3); Lipase 26 U/L (12-53); Magnesium 1.9 mg/dL (1.6-2.6); Osmolality,Calculated 280 (275-295); Partial Thromboplastin Time 28.9 Seconds (22.0-36.0); Potassium 4.1 mMol/L (3.4-5.1); Prothrombin Time 11.0 Seconds (9.0-12.2); Sodium 140 mMol/L (136-145); Total Protein 7.7 gm/dL (5.7-8.2); eGFR 56 See Note
[2025-04-24 13:09] LABS: Troponin I 0.358 ng/mL (0.0-0.045)
[2025-04-24 13:19] LABS: Collection Type, Urine Clean Catch
[2025-04-24 13:32] LABS: B-Type Natriuretic Peptide 51 pg/mL (0-100)
[2025-04-24 13:38] LABS: Amphetamine/Methamp Scrn,U Positive (Negative); Barbiturate Screen,Urine Negative (Negative); Benzodiazepines Screen,Urine Negative (Negative); Benzoylecgonine Screen, Ur Negative (Negative); Fentanyl Screen,Urine Negative (Negative); Opiate Screen,Urine Positive (Negative); THC Screen,Urine Negative (Negative)
[2025-04-24 13:50] LABS: Bilirubin,Urine Negative (Negative); Blood,Urine Negative (Negative); Clarity,Urine Clear (Clear/Hazy); Color,Urine Yellow (Lt Yel-Yel); Glucose, Urine Negative (Negative); Ketones,Urine Negative (Negative); Leukocyte Esterase,Urine Positive (Negative); Nitrite,Urine Negative (Negative); PH,Urine 6.0 (5.0-7.0); Protein,Urine 1+ (Neg - Trace); RBC,Urine 4 /hpf (0-3); Specific Gravity,Urine 1.024 (1.001-1.035); Squamous Epithelial Cell,Urine 9 /hpf (0-5); Urobilinogen,Urine 2.0 mg/dL (0.0-1.0); WBC,Urine 8 /hpf (0-5)
--- NOTE | 2025-04-24 15:11 | PD.EDABDPN ---
ED Abdominal Pain RME/HPI General Chief Complaint: Abdominal Pain Stated complaint: ABD PAIN Time seen by provider: 04/24/25 11:28 Arrival date/time: 04/24/25 10:58 Limitations: no limitations RME / HPI RME / HPI narrative: 04/24/25 10:58 64-year-old male with a history of hypertension, COPD, presents to the emergency room with a chief complaint of dizziness, lightheadedness, right lower quadrant abdominal pain and tenderness, weakness and fatigue x 1 week. I have greeted and performed a focused initial assessment of this patient. A comprehensive ED assessment and evaluation of the patient, analysis of all test results, and completion of the medical decision making process will be conducted by additional ED providers. Dr. Orozco evaluation Patient is a 64-year-old male with medical history notable for hypertension but seen Emergency Department concerns for abdominal pain. Patient states that his symptoms have been on and off for the last couple weeks. Has been to multiple hospitals for symptoms however symptoms are improving. Denies fevers, chills,, cough, runny nose, dysuria, hematuria, melena, bloody stools. Does endorse occasional nausea. States that he drinks approximately 2 drinks per day, no drugs no recent travel no sick contacts. No surgeries to his belly. Last bowel movement was yesterday, patient is passing gas today. Related Data Previous Rx's ?Medication ?Instructions ?Recorded albuterol sulfate 90 mcg/actuation 2 inh inhalation Q6H PRN shortness 03/22/24 breath activated powder inhaler of breath or wheezing #1 ea carvedilol 6.25 mg tablet 6.25 mg PO BID #60 tabs 03/22/24 dapagliflozin propanediol 10 mg 10 mg PO QDAY #30 tabs 03/22/24 tablet (Farxiga) guaifenesin 1,200 mg tablet, 1,200 mg PO BID #6 tabs 03/22/24 extended release 12 hr (Mucus Relief ER) methylprednisolone 4 mg tablets in 4 mg PO QAM #21 tabs 03/22/24 a dose pack (Medrol (Scott)) dicyclomine 20 mg tablet 20 mg PO BID PRN abdominal pain 09/17/24 #20 tabs metoclopramide HCl 10 mg tablet 10 mg PO Q6H PRN nausea and 09/17/24 (Reglan) vomiting #20 tabs pantoprazole 40 mg tablet,delayed 40 mg PO QDAY #20 tabs 09/17/24 release (Protonix) pantoprazole 40 mg tablet,delayed 40 mg PO QDAY 2 weeks #14 tabs 04/19/25 release (Protonix) polyethylene glycol 3350 17 4 g PO QDAY 14 days #56 grams 04/24/25 gram/dose oral powder (Miralax) Allergies Allergy/AdvReac Type Severity Reaction Status Date / Time No Known Allergies Allergy Verified 04/24/25 11:00 ED Exam General Limitations: Present no limitations General appearance: Present alert and in no apparent distress Head Head exam: Present atraumatic and normocephalic Eye Eye exam: Present normal appearance and PERRL ENT ENT exam: Present normal exam and normal oropharynx Neck Neck exam: Present normal inspection and full ROM Chest Chest inspection: Present normal inspection and symmetric chest wall rise Respiratory Respiratory exam: Present normal lung sounds bilaterally; Absent respiratory distress Cardiovascular Cardiovascular exam: Present regular rate and normal rhythm Abdominal Exam Abdominal exam: Present soft and tenderness (Tenderness palpation of the left lower quadrant and right lower quadrant); Absent distention, guarding, rebound or rigidity exam: Present normal inspection Extremities Exam Extremities exam: Present normal inspection (Patient does have plaques on his skin bilateral lower extremities, no lower extremity edema, no erythema warmth fluctuance or crepitus) Neurological Exam Neurological exam: Present alert, oriented X3, CN II-XII intact and normal gait Psychiatric Psychiatric exam: Present normal affect and normal mood Skin Skin exam: Present warm and dry Course Quality Measures none Orders Category Date Time Status CT Screening NOW Care 04/24/25 11:38 Active EKG (ED ONLY) *Do not use* NOW Care 04/24/25 11:[address] abdomen pelvis w con Stat Exams 04/24/25 11:38 Completed EKG (ED Only) Stat Exams 04/24/25 11:38 Draft XR chest 2V Stat Exams 04/24/25 11:38 Completed B-Type Natriuretic Peptide Stat Lab 04/24/25 12:15 Completed CBC Stat Lab 04/24/25 12:15 Completed CMP [Comprehensive Metabolic Panel] Stat Lab 04/24/25 12:15 Completed Drug Screen,Urine Stat Lab 04/24/25 13:07 Completed Lipase Stat Lab 04/24/25 12:15 Completed Magnesium Stat Lab 04/24/25 12:15 Completed Partial Thromboplastin Time Stat Lab 04/24/25 12:15 Completed Prothrombin Time with INR Stat Lab 04/24/25 12:15 Completed Troponin I Stat Lab 04/24/25 12:15 Completed Troponin I Stat Lab 04/24/25 15:36 Completed UA [Urinalysis] Stat Lab 04/24/25 13:07 Completed Urine Culture Stat Lab 04/24/25 13:07 Received Vital Signs Vital signs: Vital Signs Temperature 98.6 F 04/24/25 11:41 Pulse Rate 67 04/24/25 11:41 Respiratory Rate 18 04/24/25 11:41 Blood Pressure 118/65 04/24/25 11:41 Pulse Oximetry (%) 99 04/24/25 11:41 Oxygen Delivery Method Room Air 04/24/25 11:41 Abdominal Pain MDM MDM Narrative MDM Narrative:: Patient is a 64-year-old male seen emerged from concerns for abdominal pain. Vital signs and exam as listed. Concern for ACS arrhythmia electrolyte abnormality pancreatitis appendicitis metabolic disturbance among others. Ordered labs chest x-ray EKG as well as CT scan with contrast. Also offered medication for symptom relief. Per chart review patient was hospitalized in March of last year for hypertensive emergency. Patient has a history of polysubstance use, CHF, pulmonary mass and prediabetes. Labs today without any acute hematologic abnormality, patient without any acute electrolyte abnormalities, patient creatinine is 1.4 previously normal. No significant transaminitis, alk phos is 119, troponin is 0.358, previously 0.702. BNP not elevated lipase not elevated urinalysis leuk esterase positive nitrite negative for RBCs 8 WBCs 9 squames patient does not have any dysuria urinalysis without bacteria less likely urinary tract infection. Drug screen positive for opiates and amphetamines. EKG performed today at 12:04 PM, sinus rhythm, with sinus arrhythmia, nonspecific T wave changes, not a cardiac alert. CT abdomen pelvis with contrast with evidence of colonic diverticulosis and enlarged prostate. Will repeat patient's troponin. On reevaluation patient hemodynamically stable not in distress, symptoms well-controlled. Troponin downtrended to 0.340. Patient never had any chest pain. Will discharge home close return precautions follow-up with primary care doctor as well as recommendation that he sees a electric motor analyst given his history of diverticulosis and on and off abdominal pain. Patient data External records reviewed:: [facility] previous records Clinical information provided by:: patient Social determinants that could affect healthcare access:: substance use Patient has the following chronic illnesses:: See MDM How is presenting disease/condition affected by chronic disease/condition?: exacerbated by Evaluation data The following diagnostics were reviewed and interpreted by me:: lab results, radiology exam(s) and EKG tracing(s) Lab and/or radiology exams considered but not ordered:: None Interpretation Summary: See MD Medications / Prescriptions Medications or Prescriptions considered but not ordered:: None Medication administrations:: See above Consultations Consultation(s) initiated? (list below): No Diagnosis Differential diagnosis abdominal pain: other Most likely diagnosis given after review of the tests above:: Diverticulosis Admission Indicated Admission indicated?: not indicated Admission Request Was there a request for admission?: No Disposition Plan Disposition Plan: Discharge Discharge Attestation Discharge Attestation: The patient and all family members were given an opportunity to ask questions and understood the discharge instructions. Discharge instructions specifically effects, indications for sooner follow up or return to the emergency department, and the expected course of current diagnosis. Patient condition: Stable Discharge Plan Plan Patient Disposition: HOME (Self Care) Prescriptions/Referrals Prescriptions/Med Rec: New polyethylene glycol 3350 [Miralax] 17 gram/dose powder 4 g PO QDAY 14 Days Qty: 56 0RF No Action pantoprazole [Protonix] 40 mg tablet,delayed release (DR/EC) 40 mg PO QDAY Qty: 20 0RF dicyclomine 20 mg tablet 20 mg PO BID PRN (Reason: abdominal pain) Qty: 20 0RF metoclopramide HCl [Reglan] 10 mg tablet 10 mg PO Q6H PRN (Reason: nausea and vomiting) Qty: 20 0RF pantoprazole [Protonix] 40 mg tablet,delayed release (DR/EC) 40 mg PO QDAY 14 Days Qty: 14 0RF Rx Instructions: Take one tablet by mouth before breakfast guaifenesin [Mucus Relief ER] 1,200 mg tablet extended release 12hr 1,200 mg PO BID Qty: 6 0RF methylprednisolone [Medrol (Scott)] 4 mg tablets,dose pack 4 mg PO QAM Qty: 21 0RF albuterol sulfate 90 mcg/actuation aerosol powdr breath activated 2 inh inhalation Q6H PRN (Reason: shortness of breath or wheezing) Qty: 1 0RF carvedilol 6.25 mg tablet 6.25 mg PO BID Qty: 60 0RF Rx Instructions: must administer with a meal/food dapagliflozin propanediol [Farxiga] 10 mg tablet 10 mg PO QDAY Qty: 30 0RF Referrals: No Primary/Family,Physician [Primary Care Provider] - In 1 week Problem List Clinical Impression: Diverticulosis Patient/Caregiver Discharge Instructions Education Materials: ED Diverticulosis Additional Instructions: Your CT scan today identified that you have diverticulosis. It is important that you hydrate well, eat a diet rich in fruits and vegetables as well as fiber to make sure that your bowel transit is appropriate to prevent worsening symptoms. It is important that you establish care with a electric motor analyst as you may benefit from a colonoscopy for further evaluation. Print Language: Upper Sorbian Stand Alone Forms: [facility] Award Info., Patient Portal Info Letter
[2025-04-24 16:43] LABS: Troponin I 0.340 ng/mL (0.0-0.045)
== END 2025-04-24 18:35 | disposition home or self-care (01) ==
PROVIDERS: Nurse Practitioner Family; Emergency Provider Emergency Medicine
DX: K57.30 Diverticulosis of large intestine without perforation or abscess without bleeding (principal); I10 Essential (primary) hypertension; J44.9 Chronic obstructive pulmonary disease, unspecified; Z79.52 Long term (current) use of systemic steroids
CPT/HCPCS: 36415; 71046; 74177; 80053; 80307; 81001; 83690; 83735; 83880; 84484; 85025; 85610; 85730; 87086; 93005; 99283; A4649; Q9967